=== PATIENT | male | born 1955 | race Caucasian/White ===

== ENCOUNTER 2021-03-20 15:11 | Emergency (ER) | payer OTHER ==
[2021-03-20 16:46] LABS: BASOPHIL 0.4 % (0-2); EOSINOPHIL 0 % (0-5); HGB 16.2 g/dl (13.2-18.0); LYMPHOCYTE 15.8 % (15-48); MCH 29.1 pg (25.0-31.0); MCHC 33.1 g/dL (32.0-36.0); MONOCYTE 9.2 % (0-12); MPV 10.2 fL (6.0-9.5); NEUTROPHIL 74.2 % (41-80); NRBC 0; PLT 194 K/uL (150-400); RBC 5.57 M/uL (4.70-6.00); RDW 12.4 % (11.5-14.0); WBC 5.7 K/uL (4.0-10.5)
[2021-03-20 17:01] LABS: ALBUMIN 3.7 g/dL (3.4-5.0); BILIRUBIN - TOTAL 0.6 mg/dL (0.2-1.0); BUN/CREAT RATIO (CALC) 19.6 RATIO; CREATININE 1.12 mg/dL (0.67-1.17); GLOBULIN (CALCULATION) 4.5 g/dL; POTASSIUM 3.8 mmol/L (3.5-5.1); TOTAL PROTEIN 8.2 g/dL (6.4-8.2)
== END 2021-03-20 17:30 | disposition home or self-care (01) ==
LOC: FER 15:11
PROVIDERS: Physician Assistant Medical
DX: B34.9 Viral infection, unspecified (principal); R63.0 Anorexia; I25.2 Old myocardial infarction; I69.934 Monoplegia of upper limb following unspecified cerebrovascular disease affecting left non-dominant side; E78.5 Hyperlipidemia, unspecified; I10 Essential (primary) hypertension; Z95.5 Presence of coronary angioplasty implant and graft; Z79.82 Long term (current) use of aspirin; Z79.899 Other long term (current) drug therapy
CPT/HCPCS: 36415; 80053; 85025; 99283

== ENCOUNTER 2021-03-23 13:46 | Day surgery (SDCO) | payer OTHER ==
[~2021-03-23] VITALS: Ht 170.2 cm; Wt 72.6 kg
[2021-03-23 14:35] LABS: BASOPHIL 0.1 % (0-2); EOSINOPHIL 0.4 % (0-5); HCT 42.3 % (42.0-52.0); LYMPHOCYTE 10.7 % (15-48); MCH 30.1 pg (25.0-31.0); MCHC 35.5 g/dL (32.0-36.0); MCV 84.9 fL (78.0-100.0); MONOCYTE 6.7 % (0-12); NEUTROPHIL 81.2 % (41-80); NRBC 0; PLT 321 K/uL (150-400); RBC 4.98 M/uL (4.70-6.00); RDW 12.1 % (11.5-14.0); WBC 8.2 K/uL (4.0-10.5)
[2021-03-23 14:47] LABS: ALBUMIN 2.9 g/dL (3.4-5.0); BILIRUBIN - TOTAL 0.9 mg/dL (0.2-1.0); CREATININE 1.09 mg/dL (0.67-1.17); GLOBULIN (CALCULATION) 4.5 g/dL; POTASSIUM 3.8 mmol/L (3.5-5.1); TOTAL PROTEIN 7.4 g/dL (6.4-8.2)
[2021-03-23 14:57] LABS: INR 1.09 (0.9-1.2); PROTHROMBIN TIME 13.5 SECONDS (11.8-13.4)
[2021-03-23 16:50] LABS: BILIRUBIN NEGATIVE (NEGATIVE); BLOOD 2+ Ery/uL (NEGATIVE); CLARITY CLEAR (CLEAR); COLOR YELLOW (YELLOW); GLUCOSE (U) NORMAL (NORMAL); LEUKOCYTES NEGATIVE Leu/uL (NEGATIVE); NITRITE NEGATIVE (NEGATIVE); PROTEIN 2+ mg/dL (NEGATIVE); pH 5.5 (5.0-9.0)
[2021-03-23 17:06] LABS: BACTERIA 2+; GRANULAR CASTS TRACE; URINARY RBC RARE
[2021-03-23] MEDS ORDERED: NORVASC5 MG PO (23:18)
[2021-03-23] MEDS ORDERED: CRESTOR40 MG PO (23:18)
[2021-03-23] MEDS ORDERED: ASPIRIN EC81 MG PO (23:19)
[2021-03-23] MEDS ORDERED: BRILINTA60 MG PO (23:19)
[2021-03-23] MEDS ORDERED: LEXAPRO 10MG TA10 MG PO (23:20)
[2021-03-24 04:34] LABS: INFLUENZA A NAA NEGATIVE (NEGATIVE)
[2021-03-24 04:35] LABS: CORONAVIRUS 2019 SARS-COV-2 POSITIVE (NEGATIVE)
[2021-03-24 06:27] LABS: BASOPHIL 0.4 % (0-2); EOSINOPHIL 0.4 % (0-5); HCT 36.9 % (42.0-52.0); HGB 13.3 g/dl (13.2-18.0); LYMPHOCYTE 10.2 % (15-48); MCH 32.2 pg (25.0-31.0); MONOCYTE 6.3 % (0-12); MPV 10.4 fL (6.0-9.5); NEUTROPHIL 81.9 % (41-80); NRBC 0; PLT 282 K/uL (150-400); RBC 4.13 M/uL (4.70-6.00); RDW 12.8 % (11.5-14.0); WBC 8.5 K/uL (4.0-10.5)
[2021-03-24 06:28] LABS: MCV 89.3 fL (78.0-100.0)
[2021-03-24 06:43] LABS: BUN/CREAT RATIO (CALC) 21.3 RATIO; C-REACTIVE PROTEIN 10.2 mg/dL (<=0.90); CREATININE 0.89 mg/dL (0.67-1.17); POTASSIUM 3.9 mmol/L (3.5-5.1)
--- NOTE | 2021-03-24 12:24 | NUR ---
PT RESIDES WITH AND IS NORMALLY INDEPENDENT. HE IS CURRENTLY ON ROOM AIR. PER RAMSEY MCNEAL PT DOES NOT HAVE ANY DISCHARGE NEEDS.
[2021-03-25 05:57] LABS: BASOPHIL 0.2 % (0-2); EOSINOPHIL 0.2 % (0-5); HCT 31.2 % (42.0-52.0); HGB 12.9 g/dl (13.2-18.0); LYMPHOCYTE 11.1 % (15-48); MCV 92.9 fL (78.0-100.0); MONOCYTE 5.1 % (0-12); NEUTROPHIL 82.7 % (41-80); NRBC 0; PLT 296 K/uL (150-400); RBC 3.36 M/uL (4.70-6.00); RDW 15.1 % (11.5-14.0); WBC 8.1 K/uL (4.0-10.5)
[2021-03-25 06:10] LABS: HBSAG SCREEN Negative (Negative); HEP A AB, IGM Negative (Negative); HEP B CORE AB, IGM Negative (Negative); HEP C VIRUS AB <0.1 (0.0-0.9)
[2021-03-25 06:37] LABS: BUN/CREAT RATIO (CALC) 8.5 RATIO; CREATININE 1.77 mg/dL (0.67-1.17); POTASSIUM 3.5 mmol/L (3.5-5.1)
[2021-03-25 06:41] LABS: MCH 38.4 pg (25.0-31.0); MCHC 41.3 g/dL (32.0-36.0)
[2021-03-25 15:58] LABS: BUN/CREAT RATIO (CALC) 15.9 RATIO; CREATININE 0.88 mg/dL (0.67-1.17); POTASSIUM 3.8 mmol/L (3.5-5.1)
== END 2021-03-25 17:41 | disposition home or self-care (01) ==
LOC: FER 13:46 → FMS 21:56
PROVIDERS: Family Medicine; Nurse Practitioner; Physician Assistant; ADMIT Internal Medicine
DX: N39.0 Urinary tract infection, site not specified (principal); N17.9 Acute kidney failure, unspecified; U07.1 COVID-19; J12.82 Pneumonia due to coronavirus disease 2019; I11.9 Hypertensive heart disease without heart failure; I25.2 Old myocardial infarction; Z86.73 Personal history of transient ischemic attack (TIA), and cerebral infarction without residual deficits; Z79.02 Long term (current) use of antithrombotics/antiplatelets; Z79.82 Long term (current) use of aspirin; Z79.899 Other long term (current) drug therapy; Z95.828 Presence of other vascular implants and grafts
CPT/HCPCS: 36415; 36600; 71046; 71275; 80048; 80053; 80074; 81001; 82803; 83615; 83690; 84484; 85025; 85610; 86140; 87088; 93005; 94010; 94640; 94760; 97162; 97166; 97530-GP; 97535; G0378; J0696; J7030; J7120; Q9967; U0002